=== PATIENT | male | born 1945 | race Two or more races ===

== ENCOUNTER 2018-12-01 01:07 | Emergency (ER) | payer MEDICARE, MEDICAID ==
[~2018-12-01] VITALS: Ht 167.6 cm; Wt 78.9 kg
[2018-12-01] MEDS ORDERED: SIMVASTATIN40 MG ORAL (01:24)
[2018-12-01] MEDS ORDERED: CLOPIDOGREL75 MG ORAL (01:24)
[2018-12-01] MEDS ORDERED: BENAZEPRIL HCL40 MG ORAL (01:24)
[2018-12-01] MEDS ORDERED: GABAPENTIN600 MG ORAL (01:24)
[2018-12-01] MEDS ORDERED: BACLOFEN10 MG ORAL (01:24)
[2018-12-01] MEDS ORDERED: FUROSEMIDE40 MG ORAL (01:24)
[2018-12-01] MEDS ORDERED: LORATADINE10 M2 PO (01:24)
[2018-12-01 01:31] VITALS: BP 138/71
--- NOTE | 2018-12-01 01:41 | NUR ---
ED Nurse Note: Patient walked into ER from home due to fall. Stated that fell, and hit his left knee, right elbow, right hip. Patient is taking blood thiners, AAO x4, VSS at this time, skin is dry warm to touch. Patient presented with abrasion on his left knee, and right elbow.
[2018-12-01] MEDS ORDERED: Neosporin Oint Ud Pkt TOP ONE (01:45)
[2018-12-01] MEDS ORDERED: Tetanus/Diptheria/Pertussis IM ONE (01:45)
[2018-12-01] MEDS ORDERED: Acetaminophen 500mg (ES) tab PO ONE (01:45)
--- NOTE | 2018-12-01 03:01 | Emergency Room Report ---
History of Present Illness General Chief Complaint: Multiple Trauma/Fall Source: Patient Present Illness HPI Patient slipped and fell 730 tonight. He denies loss of consciousness. He uses a cane. He lost his balance. He rolled on the asphalt. He scraped his left knee and right elbow. In addition he hit his right thigh. He is able to ambulate but has severe pain when he tries to weight-bear and bend his left knee. He went home and cleaned his abrasions. Due to the continued pain in his left knee and swelling is come to the emergency department. He did not hit his head or lose consciousness. He denied chest pain or palpitation at the time. The patient suffers from chronic back pain and left leg weakness. He denies this pain being increased at this time. He takes gabapentin for pain. In addition the patient has peripheral vascular disease. He has had lower extremity stents placed. Patient takes Plavix and aspirin. He has easy bruising. He is unable to take nonsteroidal anti-inflammatory medication due to these medications. No fevers, chills, sore throat, nausea, vomiting, diarrhea, dysuria, abdominal pain, shortness of breath, depression, anxiety, visual changes, headache. Allergies: Coded Allergies: No Known Allergies (Unverified , 12/01/18) Patient History Past Medical History: see triage record Social History: Reports: smoking Social History Narrative From home, drove himself here Reviewed Nursing Documentation: PMH: Agreed; PSxH: Agreed Nursing Documentation-[facility] Past Medical History: No History, Except For Hx Hypertension: Yes - HTN Hx Diabetes: Yes - Type 2 Review of Systems All Other Systems: negative except mentioned in HPI Physical Exam Vital Signs Date Time Temp Pulse Resp B/P (MAP) Pulse Ox O2 Delivery O2 Flow Rate FiO2 11/30/18 22:25 98.4 12/01/18 01:12 120 18 138/71 (93) 90 Room Air Sp02 EP Interpretation: reviewed, normal General Appearance: well appearing, no apparent distress, GCS 15, other - Smells of cigarettes Head: normocephalic, atraumatic Eyes: bilateral eye normal inspection, bilateral eye PERRL, bilateral eye EOMI ENT: moist mucus membranes Neck: full range of motion, supple, no bony tend Respiratory: chest non-tender, lungs clear, normal breath sounds Cardiovascular #1: regular rate, rhythm, no edema Cardiovascular #2: 2+ radial (R), 2+ dorsalis pedis (R), 2+ dorsalis pedis (L) Gastrointestinal: normal inspection, non tender Musculoskeletal: back normal, pelvis stable, decreased range of mation - Left knee, decreased flexion. All other joints with normal range of motion, swelling - Left tibial tuberosity with point tenderness, tenderness - Left knee and right thigh and right elbow Neurologic: alert, oriented x3, grossly normal Psychiatric: mood/affect normal Skin: warm/dry, abrasions - Right elbow left knee Medical Decision Making Diagnostic Impression: Primary Impression: Multiple injuries due to trauma Additional Impressions: Contusion of right hip Qualified Codes: S70.01XA - Contusion of right hip, initial encounter Contusion of right elbow Qualified Codes: S50.01XA - Contusion of right elbow, initial encounter Multiple abrasions ASCVD (arteriosclerotic cardiovascular disease) Fracture of left tibial tuberosity Qualified Codes: S82.155A - Nondisplaced fracture of left tibial tuberosity, initial encounter for closed fracture ER Course Patient presents with multiple injuries post non-syncopal fall. Differential includes abrasions, contusions, fractures. X-rays are indicated. The patient will be given analgesia. The patient is given tetanus and the wounds are treated with Neosporin. See x-rays below. Clinically the patient has a fracture of the tibial tuberosity on the left-hand side. Other x-rays are negative for fracture however revealed vascular stents. Knee immobilizer applied by vascular technologist sonographer. Decreased pain, position excellent. Distal neurovascular exam normal as checked by me. Pain somewhat improved at this time. Discussed findings with patient. Patient able to ambulate. Advised of the need to follow-up. Also discussed the need for smoking cessation. Patient stable for outpatient observation and treatment. Other X-Ray Diagnostic Results Other X-Ray Diagnostic Results #1: X-Ray ordered: Left knee # of Views/Limited Vs Complete: 3 View Indication: Other EP Interpretation: Yes Interpretation: no dislocation, other - Fracture and DJD tibial tuberosity with soft tissue swelling Impression: Other Electronically Signed by: Electronically signed by Gio Arzola MD Other X-Ray Diagnostic Results #2: X-Ray ordered: Left femur # of Views/Limited Vs Complete: 4 View Indication: Pain EP Interpretation: Yes Interpretation: no dislocation, no soft tissue swelling, no fractures, other - Vascular stent Impression: Other Electronically Signed by: Electronically signed by Gio Arzola MD Other X-Ray Diagnostic Results #3: X-Ray ordered: Right femur # of Views/Limited Vs Complete: 4 View Indication: Pain EP Interpretation: Yes Interpretation: no dislocation, no soft tissue swelling, no fractures, other - Vascular stent Impression: Other Electronically Signed by: Electronically signed by Gio Arzola MD Last Vital Signs Date Time Temp Pulse Resp B/P (MAP) Pulse Ox O2 Delivery O2 Flow Rate FiO2 12/01/18 03:54 98.2 18 140/73 94 Room Air 12/01/18 01:31 120 Heart rate checked by me 98 Status: improved Disposition: HOME, SELF-CARE Condition: Improved Scripts Bacitracin (Bacitracin) 28.4 Gm Oint...g. 1 APPLIC TOPIC BID, #20 GM Prov: Gio Arzola MD 12/01/18 Acetaminophen (Tylenol) 325 Mg Tablet 650 MG ORAL Q6H PRN for Prn Pain/Headache/Temp > 101, #30 TAB 0 Refills Prov: Gio Arzola MD 12/01/18 Tramadol Hcl* (ULTRAM*) 50 Mg Tablet 50 MG ORAL Q6H PRN for For Pain, #8 TAB 0 Refills Prov: Gio Arzola MD 12/01/18 Referrals: NON PHYSICIAN (PCP) Gio Arzola MD Dec 01, 2018 03:01
--- NOTE | 2018-12-01 03:35 | Diagnostic Imaging Report ---
EXAM: XR Right Femur, 2 Views CLINICAL HISTORY: TRAUMA TECHNIQUE: Frontal and lateral views of the right femur. COMPARISON: none FINDINGS: Bones/joints: Unremarkable. No acute fracture. No dislocation. Soft tissues: Unremarkable. Vasculature: Arterial vascular calcifications. IMPRESSION: No acute findings.
--- NOTE | 2018-12-01 03:36 | Diagnostic Imaging Report ---
EXAM: XR Left Femur, 2 Views CLINICAL HISTORY: TRAUMA TECHNIQUE: Frontal and lateral views of the left femur. COMPARISON: none FINDINGS: Bones/joints: Unremarkable. No acute fracture. No dislocation. Soft tissues: Unremarkable. Vasculature: Femoral arterial stent grafts. IMPRESSION: No acute findings.
--- NOTE | 2018-12-01 03:38 | Diagnostic Imaging Report ---
EXAM: XR Left Knee, 3 views CLINICAL HISTORY: TRAUMA TECHNIQUE: Three views of the left knee. COMPARISON: left femur x-ray same day FINDINGS: Bones/joints: Unremarkable. No acute fracture. No dislocation. Soft tissues: Unremarkable. Vasculature: Femoral arterial stent graft. IMPRESSION: No acute osseous abnormality.
[2018-12-01] MEDS ORDERED: BACITRACIN15 GM TOPIC (03:39)
[2018-12-01] MEDS ORDERED: TYLENOL325 MG ORAL (03:39)
[2018-12-01] MEDS ORDERED: TRAMADOL HCL50 MG ORAL (03:39)
[2018-12-01 03:54] VITALS: BP 140/73
--- NOTE | 2018-12-01 03:54 | NUR ---
ER DISCHARGE NOTE: Patient is cleared to be discharged per ERMD, pt is aox4, on room air, with stable vital signs. pt was given dc and prescription instructions, pt was able to verbalize understanding, pt id band removed without complications. pt is able to ambulate with steady gait. pt took all belongings.
== END 2018-12-01 03:55 | disposition home or self-care (01) ==
LOC: EMR 01:48
DX: S50.01XA Contusion of right elbow, initial encounter (principal); S70.01XA Contusion of right hip, initial encounter; S82.155A Nondisplaced fracture of left tibial tuberosity, initial encounter for closed fracture; T14.90XA Injury, unspecified, initial encounter; S80.212A Abrasion, left knee, initial encounter; I25.10 Atherosclerotic heart disease of native coronary artery without angina pectoris; E11.9 Type 2 diabetes mellitus without complications; I10 Essential (primary) hypertension; F17.200 Nicotine dependence, unspecified, uncomplicated; G89.29 Other chronic pain; M54.9 Dorsalgia, unspecified; Z95.5 Presence of coronary angioplasty implant and graft; Z79.82 Long term (current) use of aspirin; Z79.02 Long term (current) use of antithrombotics/antiplatelets; Z23 Encounter for immunization; W01.0XXA Fall on same level from slipping, tripping and stumbling without subsequent striking against object, initial encounter; Y92.410 Unspecified street and highway as the place of occurrence of the external cause
CPT/HCPCS: 29505; 90471; 90715; 99284

== ENCOUNTER 2019-05-31 07:58 | Inpatient (IN) | payer MEDICARE, MEDICAID ==
[~2019-05-31] VITALS: Ht 165.1 cm; Wt 74.4 kg
[~2019-05-31 07:58] MED LIST: BACITRACIN15 GM TOPIC; BACLOFEN10 MG ORAL; BENAZEPRIL HCL40 MG ORAL; CLOPIDOGREL75 MG ORAL; FUROSEMIDE40 MG ORAL; GABAPENTIN600 MG ORAL; LORATADINE10 M2 PO; SIMVASTATIN40 MG ORAL; TRAMADOL HCL50 MG ORAL; TYLENOL325 MG ORAL
--- NOTE | 2019-05-31 08:18 | NUR ---
ED Nurse Note: Pt ambulated to ED d/t upper lip swelling x 1week. Per triage pt also had this last month ago. Pt also complains of gum pain. Pt is AOx4 calm and cooperative; NKA; placed on bed. Dr. Jose at bedside.
[2019-05-31] MEDS ORDERED: Unasyn 3gm Inj IV ONE (08:30)
[2019-05-31] MEDS ORDERED: Omnipaque-300 100ml vial INJ PRN (08:30)
--- NOTE | 2019-05-31 08:32 | Emergency Room Report ---
History of Present Illness General Chief Complaint: General Complaint Source: Patient, Medical Record Present Illness HPI Disclaimer: Please note that this report is being documented using DRAGON technology. This can lead to erroneous entry secondary to incorrect interpretation by the dictating instrument. HPI: 74-year-old male presents for evaluation of facial swelling and pain. Symptoms present approximately 1 week. He notes progressive swelling of the upper and lower lip however the lower lip has been improving. The upper lip is firm, tender to palpation, warm. Denies any drainage. Denies trauma. He wears dentures but denies any rubbing or skin breakdown from them. Denies any recent fever, chills, sore throat, hoarse voice, nasal congestion, cough, shortness of breath, chest pain, vomiting or diarrhea. PMH: Diabetes, PVD PSH: Lower extremity stents Allergies: None reported Social Hx: [] Allergies: Coded Allergies: No Known Allergies (Unverified , 12/01/18) Nursing Documentation-PMH Hx Cardiac Problems: No - High cholesterol Hx Hypertension: Yes - HTN Hx Diabetes: Yes - Type 2 Hx Cerebrovascular Accident: Yes - Angioplasty Review of Systems All Other Systems: negative except mentioned in HPI Physical Exam Vital Signs Date Time Temp Pulse Resp B/P (MAP) Pulse Ox O2 Delivery O2 Flow Rate FiO2 05/31/19 08:08 98.1 105 15 106/52 (70) 95 Room Air General: Awake and alert, no acute distress HEENT: NC/AT. EOMI. 3 x 2 cm area of indurated, edematous, tender and erythematous upper lip. The mucosal border has a pustule-like appearance on the inside without active drainage. Edentulous. No stridor. No edema of the soft palate, uvula, tongue or submandibular space. Resp: Normal work of breathing Skin:3 x 2 cm area of indurated, edematous, tender and erythematous upper lip. The mucosal border has a pustule-like appearance on the inside without active drainage. MSK: Normal tone and bulk. Moving all extremities. No obvious deformity. Neuro: Awake and alert. Mentating appropriately Medical Decision Making Diagnostic Impression: Primary Impression: Facial abscess Additional Impression: Parotid mass ER Course This is 74-year-old male history of diabetes and PVD presenting for evaluation of facial swelling over the past week. Patient has a mass over the left upper lip that is indurated and firm concerning for facial abscess though cellulitis, furuncle, carbuncle, folliculitis, angioedema, allergic reaction are also on the differential though less likely. Patient is no respiratory distress and does not appear to be compromising his airway. Will send for CT scan with IV contrast and give a dose of antibiotics. Laboratory Tests Test 05/31/19 08:14 White Blood Count 12.4 K/UL (4.8-10.8) H Red Blood Count 5.03 M/UL (4.70-6.10) Hemoglobin 13.8 G/DL (14.2-18.0) L Hematocrit 41.9 % (42.0-52.0) L Mean Corpuscular Volume 83 FL (80-99) Mean Corpuscular Hemoglobin 27.4 PG (27.0-31.0) Mean Corpuscular Hemoglobin Concent 33.0 G/DL (32.0-36.0) Red Cell Distribution Width 15.1 % (11.6-14.8) H Platelet Count 348 K/UL (150-450) Mean Platelet Volume 5.1 FL (6.5-10.1) L Neutrophils (%) (Auto) 70.7 % (45.0-75.0) Lymphocytes (%) (Auto) 20.2 % (20.0-45.0) Monocytes (%) (Auto) 4.2 % (1.0-10.0) Eosinophils (%) (Auto) 4.2 % (0.0-3.0) H Basophils (%) (Auto) 0.6 % (0.0-2.0) Sodium Level 140 MMOL/L (136-145) Potassium Level 4.5 MMOL/L (3.5-5.1) Chloride Level 103 MMOL/L (98-107) Carbon Dioxide Level 26 MMOL/L (21-32) Anion Gap 11 mmol/L (5-15) Blood Urea Nitrogen 15 mg/dL (7-18) Creatinine 1.5 MG/DL (0.55-1.30) H Estimate Glomerular Filtration Rate 45.6 mL/min (>60) Glucose Level 143 MG/DL (74-106) H Calcium Level 9.0 MG/DL (8.5-10.1) CT/MRI/US Diagnostic Results CT/MRI/US Diagnostic Results : Impression Final Report EXAM: CT Maxillofacial Without and With Intravenous Contrast CLINICAL HISTORY: ABSCESS TECHNIQUE: Axial computed tomography images of the face without and with intravenous contrast. CTDI is 21 mGy and DLP is 295 mGy-cm. One or more of the following dose reduction techniques were used: automated exposure control, adjustment of the mA and/or kV according to patient size, use of iterative reconstruction technique. COMPARISON: No relevant prior studies available. FINDINGS: Bones/joints: No acute fracture. Soft tissues: There is a peripherally enhancing 10 mm fluid collection in the left upper lip consistent with abscess. There is moderate surrounding cellulitis. Note is also made of a mass in the posterior aspect of the left parotid measuring 2.5 x 1.5 x 3.5 cm. There is mild left jugular lymphadenopathy. The largest node just deep to the sternocleidomastoid muscle measures 1.8 x 0.8 cm. This is nonspecific. Orbits: Unremarkable. Sinuses: There is mild mucosal thickening and scattered ethmoid air cells. The remaining paranasal sinuses appear clear without air-fluid level. . Dental: No discrete underlying osseous abnormalities are identified. The patient is edentulous. IMPRESSION: 1. 1 cm abscess in the left upper lip. 2. Left parotid mass as described. Differential diagnostic considerations include pleomorphic adenoma, Elio's tumor or possibly malignant lesion such as mucoepidermoid carcinoma, among others. 3. Mild left cervical lymphadenopathy. Metastatic disease cannot be excluded. Radiologist: Feroz Laird MD Electronically Signed: 05/31/19 09:50 Study ready at 09:27 and initial results transmitted at 09:50 Reevaluation Time: 10:51 Last Vital Signs Date Time Temp Pulse Resp B/P (MAP) Pulse Ox O2 Delivery O2 Flow Rate FiO2 05/31/19 08:08 98.1 105 15 106/52 (70) 95 Room Air Reevaluation Impression Labs are returned largely within normal limits aside from slight elevation in his creatinine. He is receiving IV fluids. CT shows a 1 cm upper lip abscess. Will discuss with facial plastics for drainage given its location. Patient received Unasyn already in the emergency department. There is also note of a parotid mass. The patient states he had a mass in the 1980s that was surgically removed on the right parotid. There is also concern of possible metastatic disease or benign mass. May require further work-up. Patient will be admitted for IV antibiotics given the facial abscess and surrounding cellulitis possible secondary metastatic disease work-up. Will admit to as he has a [facility] patient. Dr. Supa Walker will perform incision and drainage. Disposition: ADMITTED INPATIENT Condition: Serious Lux Jose MD May 31, 2019 08:32
--- NOTE | 2019-05-31 08:34 | NUR ---
ED Nurse Note: Pt went on CT via w[facility] accompanied by tech.
[2019-05-31 08:37] VITALS: BP 106/52
[2019-05-31 08:49] LABS: BASOPHILS % (AUTO) 0.6 % (0.0-2.0); EOSINOPHILS % (AUTO) 4.2 % (0.0-3.0); HEMATOCRIT 41.9 % (42.0-52.0); HEMOGLOBIN 13.8 G/DL (14.2-18.0); LYMPHOCYTES % (AUTO) 20.2 % (20.0-45.0); MEAN CORPUSCULAR VOLUME 83 FL (80-99); MONOCYTES % (AUTO) 4.2 % (1.0-10.0); NEUTROPHILS % (AUTO) 70.7 % (45.0-75.0); PLATELET COUNT 348 K/UL (150-450); RED BLOOD COUNT 5.03 M/UL (4.70-6.10); RED CELL DISTRIBUTION WIDTH 15.1 % (11.6-14.8); WHITE BLOOD COUNT 12.4 K/UL (4.8-10.8)
[2019-05-31 08:52] LABS: ANION GAP 11 mmol/L (5-15); BLOOD UREA NITROGEN 15 mg/dL (7-18); CARBON DIOXIDE 26 MMOL/L (21-32); CHLORIDE 103 MMOL/L (98-107); CREATININE 1.5 MG/DL (0.55-1.30); POTASSIUM 4.5 MMOL/L (3.5-5.1); SODIUM 140 MMOL/L (136-145)
--- NOTE | 2019-05-31 08:52 | NUR ---
ED Nurse Note: Confirmed ordered ATB medication with charge nurse and pharmacist; got a new order of Unasyn 3gm with 110ml of NACl for dilution.
[2019-05-31] MEDS ORDERED: Unasyn 3gm in NS 110ml IVPB ONE (09:00)
--- NOTE | 2019-05-31 09:51 | Diagnostic Imaging Report ---
EXAM: CT Maxillofacial Without and With Intravenous Contrast CLINICAL HISTORY: ABSCESS TECHNIQUE: Axial computed tomography images of the face without and with intravenous contrast. CTDI is 21 mGy and DLP is 295 mGy-cm. One or more of the following dose reduction techniques were used: automated exposure control, adjustment of the mA and/or kV according to patient size, use of iterative reconstruction technique. COMPARISON: No relevant prior studies available. FINDINGS: Bones/joints: No acute fracture. Soft tissues: There is a peripherally enhancing 10 mm fluid collection in the left upper lip consistent with abscess. There is moderate surrounding cellulitis. Note is also made of a mass in the posterior aspect of the left parotid measuring 2.5 x 1.5 x 3.5 cm. There is mild left jugular lymphadenopathy. The largest node just deep to the sternocleidomastoid muscle measures 1.8 x 0.8 cm. This is nonspecific. Orbits: Unremarkable. Sinuses: There is mild mucosal thickening and scattered ethmoid air cells. The remaining paranasal sinuses appear clear without air-fluid level. . Dental: No discrete underlying osseous abnormalities are identified. The patient is edentulous. IMPRESSION: 1. 1 cm abscess in the left upper lip. 2. Left parotid mass as described. Differential diagnostic considerations include pleomorphic adenoma, Elio's tumor or possibly malignant lesion such as mucoepidermoid carcinoma, among others. 3. Mild left cervical lymphadenopathy. Metastatic disease cannot be excluded.
[2019-05-31 10:33] VITALS: BP 106/52
--- NOTE | 2019-05-31 10:50 | NUR ---
clinicals faxed to [facility] waiting for plastic surgeon to come and evaluate the patient
--- NOTE | 2019-05-31 10:59 | NUR ---
ED Nurse Note: Pt on bed, awake and alert VSS, on RA, NAD.
--- NOTE | 2019-05-31 11:20 | NUR ---
per spring encaser patient will be transferd to [facility] after the consult
--- NOTE | 2019-05-31 12:30 | NUR ---
per case coordinator bed will be assigned at [facility] but still waiting for plastic md to come and evaluate the patient
[2019-05-31 13:02] VITALS: BP 110/60
--- NOTE | 2019-05-31 15:00 | NUR ---
TRANSFER TO FLOOR: Patient transferred to [facility] MS Unit as ordered, per Dr. Aguillon. Report given to Cristiane HART. Belongings and medications given to receiving nurse. Family and or S/O informed of transfer.
[2019-05-31] MEDS ORDERED: BACLOFEN20 MG ORAL (15:54)
[2019-05-31] MEDS ORDERED: GABAPENTIN800 MG ORAL (15:54)
[2019-05-31 16:11] VITALS: BP 133/78
[2019-05-31] MEDS: Aspirin Baby 81mg NG SCH (16:30)
--- NOTE | 2019-05-31 16:46 | NUR ---
NURSE NOTES: RECEIVED REPORT FROM [facility]. PATIENT TRANSFERRED FROM ED VIA GURNEY, AXOX4, NOT IN DISTRESS. NO COMPLAINTS OF PAIN. ABLE TO SELF-TRANSFER WITH ASSISTIVE DEVICE/CANE, VITALS WNL. NOTED SWELLING ON LEFT UPPER LIP. NO DRAINAGE NOTED. IV ON LEFT AC INTACT AND FLUSHING WELL. HEAD TO TOE SKIN CHECK DONE, SKIN CLEAN, DRY, AND INTACT. BELONGINGS RECEIVED AND VERIFIED WITH PATIENT. PATIENT DECLINED USE OF HOSPITAL SAFE AND PREFERS TO KEEP PHILLIPS AND JEWELRY AT BEDSIDE. DENTURES LABELED AND PLACED IN DENTURE CUP. PATIENT'S OWN MEDICATIONS SENT TO PHARMACY. ALL ADMISSION ORDERS CONFIRMED WITH DR. BARRIOS. PATIENT IS ON NPO EXCEPT MEDS UNTIL FURTHER ORDERS. BED ALARMS PLACED ON ZONE 1. CALL LIGHT PLACED WITHIN REACH. INSTRUCTED PT TO CALL NURSE FOR ASSISTANCE. WILL CONTINUE TO MONITOR.
--- NOTE | 2019-05-31 17:57 | NUR ---
NURSE NOTES: Clarified NPO orders with Dr. Auguste. informed junior underwriter that Dr. Supa Walker (Plastic Surgery) was supposed to see patient this afternoon for I&D procedure of facial abscess. MD advised junior underwriter to confirm with with Dr. Walker if he was coming to see patient tonight and if he wanted to keep patient on NPO. Charge nurse also clarified if Dr. Aguillon wanted to change IVF to D5 1/2 NS but MD declined for now. [place] [facility]. Supa Walker's office, awaiting callback.
[2019-05-31] MEDS: Clindamycin 600mg 50 ML IV SCH (18:07)
--- NOTE | 2019-05-31 19:22 | NUR ---
HAND-OFF: Report given to Ruthie HART.
--- NOTE | 2019-05-31 19:58 | NUR ---
NURSE NOTES: Received patient in bed, awake, alert, oriented, IV site is clean dry and intact. Patient is ambulates with cane, able to make his needs known, call light is within reach, bed is lowered, locked, alarm is on. Will continue to monitor for comfort and safety.
[2019-05-31] MEDS: CALCIFEDIOL 30 MCG ORAL SCH (20:45)
[2019-05-31] MEDS: Atorvastatin 20mg tab ORAL SCH (20:45)
[2019-05-31] MEDS: NovoLOG Insulin Flexpen SUBQ SCH (20:54)
[2019-06-01] MEDS: Clindamycin 600mg 50 ML IV SCH ×3 (00:49→17:50)
--- NOTE | 2019-06-01 01:45 | History and Physical Report ---
DATE OF ADMISSION: 05/31/2019 HISTORY OF PRESENT ILLNESS: This is a 74-year-old male with history of CAD, hypertension, and diabetes, here in the hospital with left upper lip swelling and pain. This has been going on for approximately a week. He is an active smoker as well. There has been no trauma. There has been no dental injuries or dental issues. On evaluation, he was found to have a tender left upper lip with firmness. There is concern there may be an abscess. The patient states that he has dentures, but denies any local trauma because of dentures. He denies any difficulty with swallowing or with phonation. PAST MEDICAL HISTORY: Peripheral vascular disease, CAD, hypertension, diabetes mellitus. He also has a history of hyperlipidemia. Also, he has history of previous angioplasty, right lower extremity. SURGERIES: Include lower extremity stents. HOME MEDICATIONS: Reviewed and reconciled in chart including aspirin and Plavix as well as Lantus. ALLERGIES: None reported. SOCIAL HISTORY: None. REVIEW OF SYSTEMS: Denies any headaches, hematemesis, melena, or hematochezia. PHYSICAL EXAMINATION: GENERAL: Reveals a 74-year-old male. VITAL SIGNS: Blood pressure , heart rate is 102, respirations 18. He is afebrile. HEENT: Remarkable for 3 x 2 cm area of induration on the left upper lip. LUNGS: Clear breath sounds. ABDOMEN: Soft. EXTREMITIES: There is no edema. Pulses are intact. LABORATORY DATA: Laboratory testing shows normal CBC and BMP with and creatinine 1.5. IMAGING STUDIES: The patient underwent a facial bone CT, which shows that he has a 1 cm abscess left upper lip and also incidentally found left parotid mass. IMPRESSION: 1. Left upper lip abscess. 2. Left parotid mass. 3. Hypertension. 4. Diabetes. 5. Hyperlipidemia. 6. CAD. 7. Peripheral vascular disease. DISCUSSION: Admit to the hospital. We will start intravenous clindamycin and have consult the patient with plastic surgery for consultation regarding I and D. The patient reports he has previously had a right parotid problem, but this seems to be unrelated, this will need evaluation likely as an outpatient with MRI and referral to ENT. Michael Aguillon M.D. DR: BLANK JOB#: [id number] CC:
[2019-06-01] MEDS: NovoLOG Insulin Flexpen SUBQ SCH ×4 (06:30→20:55)
--- NOTE | 2019-06-01 07:16 | NUR ---
NURSE NOTES: Blood sugar at 0600 was 55, orange juice is given per protocol, patient is able to tolerate PO , blood sugar is re checked at 0645 - 85, will endorse to am shift.
--- NOTE | 2019-06-01 07:38 | NUR ---
HAND-OFF: Report given to Cielo HART.
--- NOTE | 2019-06-01 07:49 | Pulmonology Progress Note ---
Assessment/Plan Assessment/Plan IMPRESSION: 1. Left upper lip abscess. 2. Left parotid mass. 3. Hypertension. 4. Diabetes. 5. Hyperlipidemia. 6. CAD. 7. Peripheral vascular disease. DISCUSSION: Continue intravenous clindamycin Await plastic surgery consultation The patient reports he has previously had a right parotid problem, but the left parotid problem/mass seems to be unrelated, this will need evaluation likely as an outpatient with MRI and referral to ENT. Michael Aguillon M.D. Subjective Interval Events: Awaiting facial-plastics evaluation; none new Constitutional: Reports: no symptoms HEENT: Repors: no symptoms Respiratory: Reports: no symptoms Cardiovascular: Reports: no symptoms Gastrointestinal/Abdominal: Reports: no symptoms Genitourinary: Reports: no symptoms Allergies: Coded Allergies: No Known Allergies (Unverified , 12/01/18) Objective Last 24 Hour Vital Signs Date Time Temp Pulse Resp B/P (MAP) Pulse Ox O2 Delivery O2 Flow Rate FiO2 05/31/19 16:11 96.6 97 17 133/78 (96) 93 05/31/19 16:04 Room Air 05/31/19 15:00 98.1 95 20 112/64 96 Room Air 05/31/19 13:02 98.1 91 22 110/60 96 Nasal Cannula 2.0 05/31/19 10:33 98.1 95 17 106/52 95 Room Air 05/31/19 08:39 105 15 Room Air 05/31/19 08:37 98.1 15 106/52 95 Room Air 05/31/19 08:08 98.1 105 15 106/52 (70) 95 Room Air Intake and Output 05/31/19 06/01/19 19:00 07:00 Intake Total 1050 ml Balance 1050 ml Intake IV Total 1050 ml General Appearance: no acute distress HEENT: normocephalic Respiratory/Chest: chest wall non-tender Cardiovascular: normal peripheral pulses Abdomen: normal bowel sounds Laboratory Tests 05/31/19 08:14: White Blood Count 12.4H, Red Blood Count 5.03, Hemoglobin 13.8L, Hematocrit 41.9L, Mean Corpuscular Volume 83, Mean Corpuscular Hemoglobin 27.4, Mean Corpuscular Hemoglobin Concent 33.0, Red Cell Distribution Width 15.1H, Platelet Count 348, Mean Platelet Volume 5.1L, Neutrophils (%) (Auto) 70.7, Lymphocytes (%) (Auto) 20.2, Monocytes (%) (Auto) 4.2, Eosinophils (%) (Auto) 4.2H, Basophils (%) (Auto) 0.6, Sodium Level 140, Potassium Level 4.5, Chloride Level 103, Carbon Dioxide Level 26, Anion Gap 11, Blood Urea Nitrogen 15, Creatinine 1.5H, Estimat Glomerular Filtration Rate 45.6, Glucose Level 143H, Calcium Level 9.0 Current Medications Medications (Trade) Dose Ordered Sig/Jonathan Route PRN Reason Start Time Stop Time Status Last Admin Dose Admin Aspirin (ASA) 81 mg DAILY NG 05/31/19 16:30 06/30/19 16:29 Atorvastatin Calcium (Lipitor) 20 mg BEDTIME ORAL 05/31/19 21:00 06/30/19 20:59 05/31/19 20:45 Baclofen (Lioresal) 15 mg THREE TIMES A DAY ORAL 05/31/19 18:00 06/30/19 17:59 Benazepril HCl (Lotensin) 40 mg DAILY ORAL 06/01/19 09:00 07/01/19 08:59 Clindamycin/ Sodium Chloride 50 ml @ 100 mls/hr Q8H IV 05/31/19 18:00 06/07/19 17:59 06/01/19 00:49 Dextrose (Dextrose 50%) 25 ml Q30M PRN IV Hypoglycemia 05/31/19 16:30 06/30/19 16:29 Dextrose (Dextrose 50%) 50 ml Q30M PRN IV Hypoglycemia 05/31/19 16:30 06/30/19 16:29 Furosemide (Lasix) 40 mg DAILY ORAL 06/01/19 09:00 07/01/19 08:59 Gabapentin (Neurontin) 600 mg BEDTIME ORAL 05/31/19 21:00 06/30/19 20:59 05/31/19 20:44 Insulin Aspart (NovoLOG) BEFORE MEALS AND HS SUBQ 05/31/19 21:00 06/30/19 20:59 Iohexol (OMNIPAQUE-300 100ml) NOW PRN INJ Radiology Procedure 05/31/19 08:30 06/02/19 08:25 Loratadine (Claritin 10mg) 10 mg DAILY ORAL 06/01/19 09:00 07/01/19 08:59 Patient Own Medication (Patient's Own Med) 1 ea QHS ORAL 05/31/19 21:00 06/30/19 20:59 05/31/19 20:45 Sodium Chloride 1,000 ml @ 50 mls/hr Q20H IV 05/31/19 16:30 06/30/19 16:29 05/31/19 16:57 Michael Aguillon MD Jun 01, 2019 07:49
[2019-06-01 08:00] VITALS: BP 128/70
--- NOTE | 2019-06-01 08:02 | NUR ---
NURSE NOTES: Received patient in bed, awake, alert, oriented, no complaint of pain or discomfort. LAC IV assess without signs of leakage or infiltration. Patient is ambulates with cane, able to make his needs known, call light is within reach, bed is lowered, locked, alarm is on. Will continue to monitor patient and follow up with the plan of care.
[2019-06-01 08:37] LABS: BASOPHILS % (AUTO) 0.6 % (0.0-2.0); EOSINOPHILS % (AUTO) 5.3 % (0.0-3.0); HEMATOCRIT 37.9 % (42.0-52.0); HEMOGLOBIN 12.5 G/DL (14.2-18.0); LYMPHOCYTES % (AUTO) 22.6 % (20.0-45.0); MEAN CORPUSCULAR VOLUME 82 FL (80-99); MONOCYTES % (AUTO) 5.5 % (1.0-10.0); NEUTROPHILS % (AUTO) 66.1 % (45.0-75.0); PLATELET COUNT 330 K/UL (150-450); RED CELL DISTRIBUTION WIDTH 14.7 % (11.6-14.8); WHITE BLOOD COUNT 8.8 K/UL (4.8-10.8)
[2019-06-01 08:45] LABS: ANION GAP 9 mmol/L (5-15); BLOOD UREA NITROGEN 13 mg/dL (7-18); CALCIUM 8.5 MG/DL (8.5-10.1); CARBON DIOXIDE 28 MMOL/L (21-32); CHLORIDE 106 MMOL/L (98-107); CREATININE 1.2 MG/DL (0.55-1.30); POTASSIUM 4.4 MMOL/L (3.5-5.1); SODIUM 143 MMOL/L (136-145)
[2019-06-01] MEDS: Aspirin Baby 81mg NG SCH (09:05)
[2019-06-01] MEDS: Furosemide 40mg tab ORAL SCH (09:05)
[2019-06-01 12:00] VITALS: BP 122/75
[2019-06-01 16:00] VITALS: BP 130/76
--- NOTE | 2019-06-01 18:20 | NUR ---
NURSE NOTES: given Clindamycin 600mg in NS 50cc. Nurse mistakenly saved as not guiven in spreadsheet and couldn't rever it as it was mistakenly saved.
--- NOTE | 2019-06-01 19:06 | NUR ---
HAND-OFF: Report given to HAILEY Wilkins.
--- NOTE | 2019-06-01 19:35 | NUR ---
NURSE NOTES: Received patient in bed, awake, alert, oriented x4, ambulatory with steady gate, IV site is clean dry and intact. No acute distress noted, call light is within reach, bed is lowered, locked, alarm is on, will continue to monitor for comfort and safety.
[2019-06-01 20:00] VITALS: BP 128/74
[2019-06-01] MEDS: Atorvastatin 20mg tab ORAL SCH (20:49)
[2019-06-01] MEDS: CALCIFEDIOL 30 MCG ORAL SCH (20:50)
[2019-06-01 21:25] VITALS: BP 128/74
[2019-06-02] VITALS: BP 129/78
[2019-06-02] MEDS: Clindamycin 600mg 50 ML IV SCH ×2 (01:34→10:05)
[2019-06-02 04:00] VITALS: BP 137/74
[2019-06-02] MEDS: NovoLOG Insulin Flexpen SUBQ SCH (05:47)
[2019-06-02] MEDS ORDERED: HYDROcodone/Acetamin 5/325 tab ORAL PRN (06:00)
--- NOTE | 2019-06-02 07:37 | NUR ---
HAND-OFF: Report given to Cielo HART.
[2019-06-02 07:47] LABS: BASOPHILS % (AUTO) 0.9 % (0.0-2.0); EOSINOPHILS % (AUTO) 6.9 % (0.0-3.0); HEMATOCRIT 43.1 % (42.0-52.0); HEMOGLOBIN 14.4 G/DL (14.2-18.0); LYMPHOCYTES % (AUTO) 28.7 % (20.0-45.0); MEAN CORPUSCULAR VOLUME 82 FL (80-99); MONOCYTES % (AUTO) 6.2 % (1.0-10.0); NEUTROPHILS % (AUTO) 57.3 % (45.0-75.0); PLATELET COUNT 346 K/UL (150-450); RED BLOOD COUNT 5.25 M/UL (4.70-6.10); RED CELL DISTRIBUTION WIDTH 14.7 % (11.6-14.8); WHITE BLOOD COUNT 9.3 K/UL (4.8-10.8)
[2019-06-02 08:00] VITALS: BP 124/76
[2019-06-02 08:06] LABS: ANION GAP 7 mmol/L (5-15); BLOOD UREA NITROGEN 12 mg/dL (7-18); CARBON DIOXIDE 27 MMOL/L (21-32); CHLORIDE 104 MMOL/L (98-107); CREATININE 1.2 MG/DL (0.55-1.30); POTASSIUM 4.9 MMOL/L (3.5-5.1); SODIUM 138 MMOL/L (136-145)
[2019-06-02 10:01] VITALS: BP 124/76
[2019-06-02] MEDS: Furosemide 40mg tab ORAL SCH (10:02)
[2019-06-02] MEDS: Aspirin Baby 81mg NG SCH (10:02)
[2019-06-02] MEDS ORDERED: CLINDAMYCIN HC300 MG ORAL (10:57)
--- NOTE | 2019-06-02 10:59 | Pulmonology Progress Note ---
Assessment/Plan Assessment/Plan IMPRESSION: 1. Left upper lip abscess. 2. Left parotid mass. 3. Hypertension. 4. Diabetes. 5. Hyperlipidemia. 6. CAD. 7. Peripheral vascular disease. DISCUSSION: Abscess much better Not seen yet by plastic surgery consultation The patient reports he has previously had a right parotid problem, but the left parotid problem/mass seems to be unrelated, this will need evaluation likely as an outpatient with MRI and referral to ENT. WIll dc home; pt states he has commitments etc Abscess much smaller Will dc home on PO clinda Michael Aguillon M.D. Subjective Interval Events: abscess much improved Constitutional: Reports: no symptoms HEENT: Repors: no symptoms Respiratory: Reports: no symptoms Cardiovascular: Reports: no symptoms Gastrointestinal/Abdominal: Reports: no symptoms Genitourinary: Reports: no symptoms Allergies: Coded Allergies: No Known Allergies (Unverified , 12/01/18) Objective Last 24 Hour Vital Signs Date Time Temp Pulse Resp B/P (MAP) Pulse Ox O2 Delivery O2 Flow Rate FiO2 06/02/19 10:01 124/76 06/02/19 08:00 98.1 99 18 124/76 (92) 93 06/02/19 06:34 98.7 06/02/19 04:00 98.7 74 18 137/74 (95) 98 06/02/19 00:00 98.7 78 18 129/78 (95) 98 06/01/19 21:25 98.3 78 20 128/74 (92) 98 06/01/19 20:00 97.8 74 18 128/74 (92) 98 06/01/19 16:00 98.3 94 18 130/76 (94) 95 06/01/19 12:00 98.1 96 18 122/75 (91) 94 Intake and Output 06/01/19 06/02/19 19:00 07:00 Intake Total 500 ml Output Total 750 ml Balance -250 ml Intake IV Total 500 ml Output Urine Total 750 ml # Voids 1 # Bowel Movements 1 General Appearance: no acute distress HEENT: normocephalic Respiratory/Chest: chest wall non-tender Cardiovascular: normal peripheral pulses Abdomen: normal bowel sounds Microbiology Date/Time Source Procedure Growth Status 05/31/19 08:30 Blood Blood Culture - Preliminary NO GROWTH AFTER 24 HOURS Resulted 05/31/19 08:14 Blood Blood Culture - Preliminary NO GROWTH AFTER 24 HOURS Resulted Laboratory Tests 06/02/19 07:05: White Blood Count 9.3, Red Blood Count 5.25, Hemoglobin 14.4, Hematocrit 43.1, Mean Corpuscular Volume 82, Mean Corpuscular Hemoglobin 27.4, Mean Corpuscular Hemoglobin Concent 33.4, Red Cell Distribution Width 14.7, Platelet Count 346, Mean Platelet Volume 5.7L, Neutrophils (%) (Auto) 57.3, Lymphocytes (%) (Auto) 28.7, Monocytes (%) (Auto) 6.2, Eosinophils (%) (Auto) 6.9H, Basophils (%) (Auto ) 0.9, Sodium Level 138, Potassium Level 4.9, Chloride Level 104, Carbon Dioxide Level 27, Anion Gap 7, Blood Urea Nitrogen 12, Creatinine 1.2, Estimat Glomerular Filtration Rate 59.0, Glucose Level 89, Calcium Level 9.0 Current Medications Medications (Trade) Dose Ordered Sig/Jonathan Route PRN Reason Start Time Stop Time Status Last Admin Dose Admin Acetaminophen/ Hydrocodone Bitart ([place] 5/325) 1 tab Q6H PRN ORAL For Pain 06/02/19 06:00 06/09/19 05:59 06/02/19 06:03 Aspirin (ASA) 81 mg DAILY NG 05/31/19 16:30 06/30/19 16:29 06/02/19 10:02 Atorvastatin Calcium (Lipitor) 20 mg BEDTIME ORAL 05/31/19 21:00 06/30/19 20:59 06/01/19 20:49 Baclofen (Lioresal) 15 mg THREE TIMES A DAY ORAL 05/31/19 18:00 06/30/19 17:59 06/02/19 10:02 Benazepril HCl (Lotensin) 40 mg DAILY ORAL 06/01/19 09:00 07/01/19 08:59 06/02/19 10:01 Clindamycin/ Sodium Chloride 50 ml @ 100 mls/hr Q8H IV 05/31/19 18:00 06/07/19 17:59 06/02/19 10:05 Dextrose (Dextrose 50%) 25 ml Q30M PRN IV Hypoglycemia 05/31/19 16:30 06/30/19 16:29 Dextrose (Dextrose 50%) 50 ml Q30M PRN IV Hypoglycemia 05/31/19 16:30 06/30/19 16:29 Furosemide (Lasix) 40 mg DAILY ORAL 06/01/19 09:00 07/01/19 08:59 06/02/19 10:02 Gabapentin (Neurontin) 600 mg BEDTIME ORAL 05/31/19 21:00 06/30/19 20:59 06/01/19 20:49 Insulin Aspart (NovoLOG) BEFORE MEALS AND HS SUBQ 05/31/19 21:00 06/30/19 20:59 Loratadine (Claritin 10mg) 10 mg DAILY ORAL 06/01/19 09:00 07/01/19 08:59 06/02/19 10:02 Patient Own Medication (Patient's Own Med) 1 ea QHS ORAL 05/31/19 21:00 06/30/19 20:59 06/01/19 20:50 Sodium Chloride 1,000 ml @ 50 mls/hr Q20H IV 05/31/19 16:30 06/30/19 16:29 06/01/19 17:54 Michael Aguillon MD Jun 02, 2019 10:59
--- NOTE | 2019-06-02 12:18 | NUR ---
NURSE NOTES: patient has been discharged to home, left with all his belongings including closed plastic bag of medication bottles that was stored at the pharmacy. He signed off the belongings list. Taken off IV access, no bleeding noted after site compression. Given also a sheet of prescription medication, pt said he'll have it filled at his pharmacy. Given education regarding the med prescribed. Patient left ambulatory with his own cane, going by private vehicle. Addendum: 06/02/19 at 1229 by MADHAV HENRIQUEZ RN patient is upset and in a hurry saying he has appointments today, refused nurse to go over Discharge Preparation Checklist.
--- NOTE | 2019-06-03 16:18 | Discharge Summary ---
Discharge Summary Discharge Summary _ DATE OF ADMISSION: 05/31/2019 DATE OF DISCHARGE: 06/02/2019 DISCHARGED BY: Dr. Pete REASON FOR ADMISSION: 74 years old male with past medical history of coronary artery disease, hypertension, diabetes mellitus, presented to the hospital complaining of facial swelling and pain. Symptoms started about 1 week ago. Patient noted progressive swelling of the upper and lower lip, however lower lip had improved. Upper lip on examination was firm ,tender to palpation, and warm. He denied any drainage. No trauma no injury to lip. He denied fever , chills , sore throat, hoarse voice, nasal congestion . No shortness of breath , no chest pain . No vomiting or diarrhea. Upon evaluation vital signs revealed low tachycardia with heart rate up to 110, otherwise stable . Laboratory work-up revealed mild leukocytosis with WBC 12.4 , stable hemoglobin , hematocrit and platelet count. Stable electrolytes. BUN 15, creatinine 1.5. Glucose 143. CT scan of the facial bones revealed 1 cm abscess in the left upper lip. Left parotid mass. Mild left cervical lymphadenopathy. Patient received empiric antibiotic and admitted to medical surgical floor for further management. HOSPITAL COURSE: Patient admitted to medical surgical floor. Patient started on intravenous antibiotics/clindamycin. Plastic surgery evaluation was requested. Home medication continued. Pain management was addressed as needed. Patient reported that prior he had a right parotid problem, however it seems to be unrelated. Unfortunately plastic surgeon unable to see patient. Abscess became smaller. Leukocytosis resolved, no fever Patient was stable for discharge on oral clindamycin. Patient will need to follow-up with a primary care provider to get MRI as well as to be referred to ENT specialist FINAL DIAGNOSES: Left upper lip abscess Left parotid mass Hypertension Diabetes Coronary artery disease Peripheral vascular disease Hyperlipidemia DISCHARGE MEDICATIONS: See Medication Reconciliation list. DISCHARGE INSTRUCTIONS: Patient was discharged home. Patient to follow-up with her primary care provider in 1week. Patient was advised to have MRI and see ENT specialist. I have been assigned to dictate discharge summary for this account. I was not involved in the patient's management. Brooke Tsang NP Jun 03, 2019 16:18
--- NOTE | 2019-06-04 10:57 | NUR ---
*-* INSURANCE *-* ALL CLINICALS HAVE BEEN FAXED TO: [facility] ATTN: SCOTTIE P: [phone] F: [phone]
== END 2019-06-02 12:12 | disposition home or self-care (01) | DRG 603 ==
LOC: EMR 08:25 → EDBEDREQ 10:33 → 4E 12:53 → EDBEDREQ 14:23
DX: L02.01 Cutaneous abscess of face (principal); K13.0 Diseases of lips; K11.20 Sialoadenitis, unspecified; I10 Essential (primary) hypertension; E11.9 Type 2 diabetes mellitus without complications; E78.5 Hyperlipidemia, unspecified; I25.10 Atherosclerotic heart disease of native coronary artery without angina pectoris; I73.9 Peripheral vascular disease, unspecified; R59.0 Localized enlarged lymph nodes
CPT/HCPCS: 36415; 70488; 80048; 82962; 83036; 85025; 87040; 96361; 96365; 99285; J1815; J7030; S0077